=== PATIENT | female | born 1980 | race Caucasian/White ===

== ENCOUNTER 2020-07-29 21:24 | Inpatient (IN) | payer MEDICAID ==
[~2020-07-29] VITALS: Ht 165.1 cm; Wt 72.2 kg
[2020-07-29] MEDS ORDERED: LORA10TA7 PO (21:46)
[2020-07-29 22:38] LABS: EOSINOPHILS % (AUTO) 1.6 % (1.0-6.0); HEMATOCRIT 35.3 % (36-46); HEMOGLOBIN 11.6 g/dL (12.0-16.0); LYMPHOCYTES % (AUTO) 8.5 % (22.0-44.0); MEAN CORPUSCULAR HEMOGLOBIN 27.6 pg (26.0-34.0); MEAN CORPUSCULAR HGB CONC 32.9 G/dL (31.0-37.0); MEAN CORPUSCULAR VOLUME 84 fL (80-100); MONOCYTES # (AUTO) 0.8 K/uL (0.1-1.0); MONOCYTES % (AUTO) 6.9 % (2.0-9.0); NEUTROPHILS # (AUTO) 10.1 K/uL (1.8-7.7); PLATELET COUNT (AUTO) 487 K/uL (150-450); RED BLOOD CELL COUNT(AUTO) 4.22 MIL/uL (4.00-5.20); RED CELL DISTRIBUTION WIDTH 14.1 % (11.5-14.5)
[2020-07-29 22:54] LABS: ANION GAP 11 mmol/L (8-16); CARBON DIOXIDE 26 mmol/L (22-29); CHLORIDE 101 mmol/L (98-107); CREATININE 0.79 mg/dL (0.60-1.30); GLOMERULAR FILTR. RATE CALC > 60 mL/min (>60); GLUCOSE,RANDOM 116 mg/dL (70-110); POTASSIUM 3.2 mmol/L (3.5-5.1); SODIUM SERUM 138 mmol/L (136-145); UREA NITROGEN, BLOOD 8 mg/dL (7-18)
[2020-07-29 22:58] LABS: ALANINE AMINOTRANSFERASE 67 U/L (12-78); ALBUMIN 3.3 g/dL (3.4-5.0); ALKALINE PHOSPHATASE 78 U/L (46-116); ASPARTATE AMINOTRANSFERASE 48 U/L (15-37); BILIRUBIN,TOTAL 0.4 mg/dL (0.1-1.0); TOTAL PROTEIN, SERUM 7.2 g/dL (6.4-8.2)
[2020-07-29 23:02] LABS: HCG,QUANTITATIVE < 1 mIU/mL (0-6)
[2020-07-29] MEDS ORDERED: POTASSIUM CHLORIDE 20 MEQ ER TABLET PO ONE (23:45)
[2020-07-30 01:32] LABS: COVID AG,FIA SOURCE NASOPHARYNGEAL
[2020-07-30] MEDS ORDERED: IBUP100O27 PO (01:43)
[2020-07-30] MEDS ORDERED: CEFA-62 PO (01:43)
[2020-07-30 02:07] LABS: AMPHET/METH SCREEN,URINE POSITIVE (NEGATIVE); BARBITURATE SCREEN, URINE NEGATIVE (NEGATIVE); BENZODIAZEPINES SCREEN,URINE NEGATIVE (NEGATIVE); CANNABINOID SCREEN,URINE NEGATIVE (NEGATIVE); COCAINE SCREEN,URINE NEGATIVE (NEGATIVE); METHADONE SCREEN, URINE NEGATIVE (NEGATIVE); OPIATE SCREEN,URINE NEGATIVE (NEGATIVE)
[2020-07-30 02:10] LABS: PHENCYCLIDINE SCREEN,URINE NEGATIVE (NEGATIVE)
[2020-07-30] MEDS ORDERED: HALOPERIDOL 5 MG TABLET PO PRN (02:15)
[2020-07-30 04:21] VITALS: BP 130/98
[2020-07-30] MEDS ORDERED: NICOTINE 14 MG/24 HOUR PATCH TD PRN (06:30)
[2020-07-30] MEDS ORDERED: ALBUTEROL SULFATE HFA 90 MCG/PUFF 8 GM INHALER IH PRN (06:30)
[2020-07-30] MEDS ORDERED: ONDANSETRON HCL 4 MG TABLET PO PRN (06:30)
[2020-07-30] MEDS ORDERED: DOCUSATE SODIUM 100 MG CAPSULE PO PRN (06:30)
[2020-07-30] MEDS ORDERED: PETROLATUM,WHITE 28 GM JELLY TP PRN (06:30)
[2020-07-30] MEDS ORDERED: MAG HYDROX/AL HYDROX/SIMETH ES 30 ML SUSPENSION UDCUP PO PRN (06:30)
[2020-07-30] MEDS ORDERED: LOPERAMIDE HCL 2 MG CAPSULE PO PRN (06:30)
[2020-07-30] MEDS ORDERED: MAGNESIUM HYDROXIDE SUSPENSION 30 ML UDCUP PO PRN (06:30)
[2020-07-30] MEDS ORDERED: GuaiFENesin/D-METHORPHAN [SUGAR-FREE] 200-20MG/10 ML SYRUP UDCUP PO PRN (06:30)
[2020-07-30] MEDS ORDERED: CloNIDine HCL 0.1 MG TABLET PO PRN (06:30)
[2020-07-30 08:00] VITALS: BP 96/63
[2020-07-30] MEDS: LORATADINE 10 MG TABLET PO SCH (08:15)
[2020-07-30] MEDS: LORazepam 2 MG TABLET PO PRN (11:36)
[2020-07-30] MEDS: OLANZapine 5 MG TABLET PO SCH (16:20)
[2020-07-30] MEDS ORDERED: PERMETHRIN 5% 60 GM CREAM TP ONE (16:45)
[2020-07-30 17:00] VITALS: BP 135/81
[2020-07-30] MEDS: ZOLPIDEM TARTRATE 10 MG TABLET PO PRN (20:50)
[2020-07-30] MEDS: IBUPROFEN 400 MG TABLET PO PRN (20:51)
[2020-07-31 06:22] LABS: CHOL/HDL RATIO 2.7 (3.9-5.7)
[2020-07-31 08:00] VITALS: BP 134/89
[2020-07-31] MEDS: OLANZapine 5 MG TABLET PO SCH ×2 (08:27→16:12)
[2020-07-31] MEDS: LORATADINE 10 MG TABLET PO SCH (08:27)
[2020-07-31] MEDS ORDERED: DiphenhydrAMINE/ZINC ACET 30 GM CREAM TP PRN (09:30)
[2020-07-31] MEDS: SULFAMETHOX/TRIMETH DS 800-160 MG/TABLET PO SCH ×2 (10:10→16:12)
[2020-07-31] MEDS: OMEPRAZOLE 20 MG CAPSULE PO SCH (10:11)
[2020-07-31] MEDS ORDERED: HYDROCORTISONE 1% 30 GM OINTMENT TP PRN (11:30)
[2020-07-31] MEDS: CEPHALEXIN MONOHYDRATE 500 MG CAPSULE PO SCH ×2 (13:03→16:12)
[2020-07-31] MEDS: BACITRACIN 28 GM OINTMENT TP SCH (16:11)
[2020-07-31 16:31] VITALS: BP 109/77
[2020-07-31] MEDS ORDERED: CEPH500C3 PO (20:04)
[2020-07-31] MEDS ORDERED: SULF1TAB89 PO (21:46)
[2020-07-31] MEDS: HYDROCORTISONE 1% 30 GM OINTMENT TP PRN (21:47)
[2020-07-31] MEDS: ZOLPIDEM TARTRATE 10 MG TABLET PO PRN (23:56)
[2020-08-01 00:26] VITALS: BP 120/80
[2020-08-01 04:04] VITALS: BP 120/80
[2020-08-01] MEDS: LORATADINE 10 MG TABLET PO SCH (08:23)
[2020-08-01] MEDS: OMEPRAZOLE 20 MG CAPSULE PO SCH (08:23)
[2020-08-01] MEDS: ACETAMINOPHEN 325 MG TABLET PO PRN (08:24)
[2020-08-01] MEDS: OLANZapine 5 MG TABLET PO SCH ×2 (08:24→17:48)
[2020-08-01] MEDS: CEPHALEXIN MONOHYDRATE 500 MG CAPSULE PO SCH ×3 (08:24→17:48)
[2020-08-01] MEDS: SULFAMETHOX/TRIMETH DS 800-160 MG/TABLET PO SCH ×2 (08:24→17:48)
[2020-08-01] MEDS: BACITRACIN 28 GM OINTMENT TP SCH ×2 (08:24→18:52)
[2020-08-01 09:50] VITALS: BP 116/82
[2020-08-01 16:00] VITALS: BP 103/58
[2020-08-01] MEDS: LORazepam 2 MG TABLET PO PRN (17:48)
[2020-08-01 17:49] VITALS: BP 109/63
[2020-08-01] MEDS: HYDROCORTISONE 1% 30 GM OINTMENT TP PRN (17:49)
[2020-08-01] MEDS ORDERED: IBUP-2070 PO (20:04)
[2020-08-02] MEDS: HYDROCORTISONE 1% 30 GM OINTMENT TP PRN ×2 (00:49→09:03)
[2020-08-02 08:20] VITALS: BP 121/70
[2020-08-02] MEDS: BACITRACIN 28 GM OINTMENT TP SCH ×2 (08:52→16:55)
[2020-08-02] MEDS: SULFAMETHOX/TRIMETH DS 800-160 MG/TABLET PO SCH ×2 (08:53→16:55)
[2020-08-02] MEDS: MULTIVITAMINS WITH MINERALS, THERAPEUTIC TABLET PO SCH (08:53)
[2020-08-02] MEDS: LORATADINE 10 MG TABLET PO SCH (08:53)
[2020-08-02] MEDS: CEPHALEXIN MONOHYDRATE 500 MG CAPSULE PO SCH ×3 (08:53→16:55)
[2020-08-02] MEDS: ASCORBIC ACID 500 MG TABLET PO SCH (08:53)
[2020-08-02] MEDS: OMEPRAZOLE 20 MG CAPSULE PO SCH (08:53)
[2020-08-02] MEDS: IBUPROFEN 400 MG TABLET PO PRN (08:55)
[2020-08-02] MEDS: OLANZapine 5 MG TABLET PO SCH ×2 (09:03→16:55)
[2020-08-02] MEDS: ACETAMINOPHEN 325 MG TABLET PO PRN (12:12)
[2020-08-02] MEDS: LORazepam 2 MG TABLET PO PRN (15:52)
[2020-08-02 16:00] VITALS: BP 112/67
[2020-08-03 02:19] VITALS: BP 128/93
[2020-08-03] MEDS: ZOLPIDEM TARTRATE 10 MG TABLET PO PRN (02:23)
[2020-08-03] MEDS: IBUPROFEN 400 MG TABLET PO PRN (02:24)
[2020-08-03 07:11] LABS: BASOPHILS % (AUTO) 0.9 % (0.0-2.0); LYMPHOCYTES # (AUTO) 1.9 K/uL (1.0-4.8); LYMPHOCYTES % (AUTO) 18.5 % (22.0-44.0); MEAN CORPUSCULAR HEMOGLOBIN 27.6 pg (26.0-34.0); MEAN CORPUSCULAR HGB CONC 32.7 G/dL (31.0-37.0); MEAN CORPUSCULAR VOLUME 84 fL (80-100); MONOCYTES # (AUTO) 0.8 K/uL (0.1-1.0); MONOCYTES % (AUTO) 8.2 % (2.0-9.0); NEUTROPHILS # (AUTO) 6.4 K/uL (1.8-7.7); NEUTROPHILS % (AUTO) 62.4 % (40.0-70.0); PLATELET COUNT (AUTO) 376 K/uL (150-450); RED BLOOD CELL COUNT(AUTO) 5.46 MIL/uL (4.00-5.20); RED CELL DISTRIBUTION WIDTH 14.6 % (11.5-14.5)
[2020-08-03] MEDS: OMEPRAZOLE 20 MG CAPSULE PO SCH (08:58)
[2020-08-03] MEDS: OLANZapine 5 MG TABLET PO SCH (08:58)
[2020-08-03] MEDS: ACETAMINOPHEN 325 MG TABLET PO PRN (08:58)
[2020-08-03] MEDS: CEPHALEXIN MONOHYDRATE 500 MG CAPSULE PO SCH ×2 (08:58→12:10)
[2020-08-03] MEDS: SULFAMETHOX/TRIMETH DS 800-160 MG/TABLET PO SCH (08:58)
[2020-08-03] MEDS: LORATADINE 10 MG TABLET PO SCH (08:58)
[2020-08-03] MEDS: MULTIVITAMINS WITH MINERALS, THERAPEUTIC TABLET PO SCH (08:58)
[2020-08-03] MEDS: BACITRACIN 28 GM OINTMENT TP SCH (08:58)
[2020-08-03 08:59] VITALS: BP 117/74
[2020-08-03] MEDS: HYDROCORTISONE 1% 30 GM OINTMENT TP PRN (08:59)
[2020-08-03] MEDS: LORazepam 2 MG TABLET PO PRN (09:13)
[2020-08-03] MEDS: ASCORBIC ACID 500 MG TABLET PO SCH (09:14)
[2020-08-03] MEDS ORDERED: MULT-1239 PO (12:10)
[2020-08-03] MEDS ORDERED: OMEP20 PO (12:10)
[2020-08-03] MEDS ORDERED: ASCO500 PO (12:10)
[2020-08-03] MEDS ORDERED: OLAN5TAB2 PO (12:10)
[2020-08-03] MEDS ORDERED: BACI28.42 TP (12:12)
== END 2020-08-03 13:30 | disposition home or self-care (01) | DRG 750 ==
LOC: EMS 21:24 → 3EI 07-30 02:01
PROVIDERS: ADMIT Psychiatry & Neurology Psychiatry; ATTEND Psychiatry & Neurology Psychiatry
DX: F20.9 Schizophrenia, unspecified (principal); Z59.0 Homelessness; B19.20 Unspecified viral hepatitis C without hepatic coma; R79.89 Other specified abnormal findings of blood chemistry; D64.9 Anemia, unspecified; D72.829 Elevated white blood cell count, unspecified; E87.6 Hypokalemia; F12.90 Cannabis use, unspecified, uncomplicated; J30.9 Allergic rhinitis, unspecified; N63.10 Unspecified lump in the right breast, unspecified quadrant; Z20.822 Contact with and (suspected) exposure to COVID-19; F15.90 Other stimulant use, unspecified, uncomplicated; Z79.899 Other long term (current) drug therapy
CPT/HCPCS: 80053; 80061; 83036; 84702; 85025; 87426; 99285; G0480